=== PATIENT | female | born 1960 | race Caucasian/White ===

== ENCOUNTER → 2016-07-02 | Outpatient (CLI) | payer MEDICAID ==
[~2016-07-02] MED LIST: ALEVE220 M1 PO; CALCIUM + D 6001 TA1 PO; CALCIUM 500 +1 EAC5 PO; ESTRACE1 M1 PO; ESTRACE2 M1 PO; IBUPROFEN800 MG; MEVACOR PO; OMEPRAZOLE20 M1 PO; OYSTER CALCIUM500 MG PO; PREMARIN; PREMARIN PO; PREVACID PO; PRILOSEC PO; PRILOSEC20 M1 PO; PRILOSEC20 MG PO; TYL325 PO; ULTRAM PO; VICODIN 5/1 TAB 5/50 PO
--- NOTE | ~2016-07-02 | MY11 ---
[facility] A Service of [facility] & [facility] RADIOLOGY TEXT RESULTS PATIENT: BRIDGET LINARES LOCATION: [facility] : 56 UNIT #: [id number] AGE: [address]: Stephen Beckford MD SEX: F ORDER DR: [id number] [facility] [address] [facility]. [place], [place] [address] [id number] O MR#: [id number] Acc #: [id number] NAME: BRIDGET LINARES : 1960 SEX: F STUDY DATE/TIME: 07/02/2016 11:55 UNIT: [facility] ROOM: STUDY DESCRIPTION: MY Mammogram Screening Dig Jean Attending Physician: Stephen Beckford M.D. Referring Physician: Stephen Beckford M.D. Ordering Physician: Stephen Beckford M.D. Primary Care Physician: Stephen Beckford M.D. MEDICAL IMAGING REPORT This report is preliminary unless electronic signature is present EXAM Digital screening mammogram 07/02/2016 HISTORY 55-year-old woman, positive family history, niece age 33. Annual screen. COMPARISON STUDIES Comparison mammograms date to 06/15/2005 with most recent screening comparison 06/30/2015. FINDINGS Digital imaging of each breast was completed utilizing screening protocol. Review includes FDA-approved CAD device. The breast parenchyma remains moderately dense with residual fibroglandular opacities in each breast. Slight stable dominance projects inner hemisphere left breast. I see no interval occurring breast mass. There are no suspicious microcalcifications and no architectural deformity. IMPRESSION Stable benign mammogram. Annual screening recommended. BIRADS II Patients over the age of 40 are entered into a reminder system with target due date for the next mammogram. A result letter will also be sent to the patient. BIRADS: 2 - Benign finding Dictated by... Mauri Burroughs M.D. THIS IS AN ELECTRONICALLY VERIFIED REPORT Mauri Burroughs M.D. at 07/02/2016 3:32 PM [facility] A Service of [facility] & [facility] RADIOLOGY TEXT RESULTS PATIENT: BRIDGET LINARES [id number] [birth year] UNIT #: [id number] AGE: [address]: Stephen Beckford MD SEX: F ORDER DR: TD: 07/02/2016 14:55 JOB #: [id number] MEDICAL IMAGING REPORT Page 1 of 1 COPY
== END | disposition home or self-care (01) ==
LOC: CWCC 11:27
DX: Z12.31 Encounter for screening mammogram for malignant neoplasm of breast (principal); Z80.3 Family history of malignant neoplasm of breast
CPT/HCPCS: G0202

== ENCOUNTER → 2016-07-30 | Day surgery (SDC) | payer MEDICARE, MEDICAID ==
--- NOTE | ~2016-07-30 | OR ---
Unit #: [id number] #: [id number] Patient: BRIDGET LINARES [id number] [address] [place], [place] [address] [id number] O MR#: [id number] NAME: BRIDGET LINARES ROOM: Date of Procedure: 07/30/2016 Admission Date: 07/30/2016 Surgeon: Waqar Oleary M.D. : 1960 Attending Physician: Waqar Oleary M.D. Primary Care Physician: Stephen Beckford M.D. SURGERY CENTER OPERATIVE NOTE PROCEDURE PERFORMED Lumbar epidural steroid injection under x-ray guided needle placement with provider administered conscious sedation. PREOPERATIVE DIAGNOSES 1. Acute lumbar radiculitis. 2. Spinal stenosis, lumbosacral spine. 3. Herniated disk, L4-L5. 4. Herniated disk, L3-L4. 5. Degenerative joint disease, lumbosacral spine. 6. Degenerative disk disease, lumbosacral spine. INDICATIONS FOR PROCEDURE The patient presents today with longstanding history of chronic lumbar radicular pain secondary to her underlying degenerative processes. She is generally fairly well managed medically, but over the course of last 3 to 4 months, she has developed a bilateral lower extremity radiculitis, whose pattern is consistent with her x-ray studies, which has failed to respond to conservative measures. She states she was previously had similar symptoms prior to 2011, which were successfully treated with epidural steroid injections. After discussing risks and benefits of proceeding today with a lumbar approach epidural steroid injection with return on 08/13/2016, the patient agreed this would be the appropriate course of action. DESCRIPTION OF PROCEDURE She was then taken to the operating room, where she was prepped and draped in a sterile manner. Standard monitors were applied. She was sedated with 2 mg of IV Versed and lumbar epidural space accessed at the L4-L5 level using loss of resistance technique and x-ray guidance. Needle placement was confirmed with injection of 2 mL of Omnipaque. There was good superior and inferior flow at this L4-L5 placed needle. Following successful needle placement confirmation, the patient received an injectate containing 2 mL normal saline, 2 mL of 0.25% bupivacaine, and 80 mg of methylprednisolone. She tolerated this procedure well. She was discharged home with followup instructions, which include return dates as described above. Dictated by... Waqar Oleary M.D. JRG/modl Unit #: [id number] #: [id number] Patient: BRIDGET LINARES TD: 07/30/2016 23:39 JOB #: [id number] CC: Khurram Olivares M.D. SURGERY CENTER OPERATIVE NOTE Page 1 of 1 X Luis Oleary MD X PROCEDURE OPERATIVE NOTE
== END | disposition home or self-care (01) ==
LOC: CCSC 12:55
DX: G89.29 Other chronic pain (principal); M51.17 Intervertebral disc disorders with radiculopathy, lumbosacral region; M51.16 Intervertebral disc disorders with radiculopathy, lumbar region; M47.27 Other spondylosis with radiculopathy, lumbosacral region; M48.07 Spinal stenosis, lumbosacral region; M17.0 Bilateral primary osteoarthritis of knee; K21.9 Gastro-esophageal reflux disease without esophagitis; E78.5 Hyperlipidemia, unspecified; Z87.442 Personal history of urinary calculi; Z79.899 Other long term (current) drug therapy; Z90.710 Acquired absence of both cervix and uterus; Z98.890 Other specified postprocedural states
CPT/HCPCS: J1040; J2250

== ENCOUNTER → 2016-08-13 | Day surgery (SDC) | payer MEDICARE, MEDICAID ==
--- NOTE | ~2016-08-13 | OR ---
Unit #: [id number] #: [id number] Patient: BRIDGET LINARES [id number] [address] [address] [id number] O MR#: [id number] NAME: BRIDGET LINARES ROOM: Date of Procedure: 08/13/2016 Admission Date: 08/13/2016 Surgeon: Waqar Oleary M.D. : 1960 Attending Physician: Luis Oleary Primary Care Physician: Stephen Beckford M.D. SURGERY CENTER OPERATIVE NOTE PROCEDURE PERFORMED Lumbar epidural steroid injection under x-ray guided needle placement with provider administered conscious sedation. PREOPERATIVE DIAGNOSES 1. Acute lumbar radiculitis. 2. Spinal stenosis, lumbosacral spine. 3. Degenerative joint disease, lumbosacral spine. 4. Herniated disk, L4-L5. 5. Herniated disk, L3-L4. 6. Degenerative disk disease, lumbosacral spine. INDICATIONS FOR PROCEDURE The patient presents today status post one previous lumbar approach epidural steroid injection for an acute radiculitis, which had failed to respond to conservative therapy. Her signs and symptoms are compatible with her x-ray studies. She states she got very little relief with the original epidural steroid injection and what relief she got was only temporary and she has had since had return of symptoms to the point that she is desiring another epidural steroid injection. After discussing risks and benefits of proceeding today with second lumbar approach epidural steroid injection with possibility of additional access at L3-L4, if we did not cover that with the L4-L5 original access point. The patient agreed this would be the appropriate course of action. We also discussed potential referral for back surgery evaluation if this epidural steroid injection did not provide her adequate relief. DESCRIPTION OF PROCEDURE Following these discussions, the patient was taken to the operating room, where she was prepped and draped in a sterile manner. Standard monitors were applied. She was sedated with 2 mg of IV Versed initially and required additional 2 mg of IV Versed as well as additional 1 mL of IV fentanyl throughout the duration of procedure. Lumbar epidural space was accessed at L4-L5 level using loss of resistance technique and x-ray guidance. Needle placement was confirmed with injection of 2 mL of Omnipaque. All dye flow at this L4-L5 level was in the inferior direction. The patient received an injectate containing 2 mL of normal saline and 40 mg of methylprednisolone. This needle was withdrawn and the second access point was obtained with a sterile needle and new sterile gloves at the L3-L4 level. This L3-L4 needle placement again occurred with loss of resistance and x-ray guidance. Total x-ray time for dual placement of these needles was 11 seconds. This needle at the L3-L4 level was confirmed with the injection of 2 mL of Omnipaque which approximately Unit #: [id number] #: [id number] Patient: BRIDGET LINARES 80% of dye flow was in the superior direction, 20% in the inferior which in combination with the previous injection gave us good coverage of L3-L4 and L4-L5. Following successful needle placement confirmation, the patient received an injectate containing 2 mL normal saline, 40 mg of methylprednisolone. She tolerated this procedure well. She was discharged home with followup instructions, which included a return to this clinic on 11/14/2016 if we could be of further service to her. Dictated by... Juan Woodall/sandi TD: 08/13/2016 16:26 JOB #: [id number] CC: Khurram Olivares M.D. SURGERY CENTER OPERATIVE NOTE Page 1 of 1 X Luis Oleary MD X PROCEDURE OPERATIVE NOTE
== END | disposition home or self-care (01) ==
LOC: CCSC 12:10
DX: M51.17 Intervertebral disc disorders with radiculopathy, lumbosacral region (principal); M51.16 Intervertebral disc disorders with radiculopathy, lumbar region; M47.27 Other spondylosis with radiculopathy, lumbosacral region; M48.07 Spinal stenosis, lumbosacral region; K21.9 Gastro-esophageal reflux disease without esophagitis; M19.90 Unspecified osteoarthritis, unspecified site; Z87.442 Personal history of urinary calculi; Z79.899 Other long term (current) drug therapy; Z90.710 Acquired absence of both cervix and uterus; Z98.890 Other specified postprocedural states
CPT/HCPCS: J1040; J2250; J3010

== ENCOUNTER → 2016-10-08 | Outpatient (CLI) | payer MEDICARE ==
--- NOTE | ~2016-10-08 | CR63 ---
[facility] A Service of [facility] & [facility] RADIOLOGY TEXT RESULTS PATIENT: BRIDGET LINARES LOCATION: [facility] : 56 UNIT #: [id number] AGE: [address]: Khurram Olivares MD SEX: F ORDER DR: [id number] [facility] [address] [facility]. [place], [place] [address] [id number] O MR#: [id number] Acc #: [id number] NAME: BRIDGET LINARES : 1960 SEX: F STUDY DATE/TIME: 10/08/2016 10:26 UNIT: [facility] ROOM: STUDY DESCRIPTION: CR Chest 2 View Attending Physician: Khurram Olivares M.D. Referring Physician: Khurram Olivares M.D. Ordering Physician: Khurram Olivares M.D. Primary Care Physician: Stephen Beckford M.D. MEDICAL IMAGING REPORT This report is preliminary unless electronic signature is present EXAM Chest 10/08/2016 HISTORY 56-year-old woman preop clearance left knee arthroscopy. Nonsmoker. Short of breath. COMPARISON Chest 09/12/2009. FINDINGS PA and lateral chest views show normal cardiac size and configuration. Hilar structures and mediastinal contours are preserved. Bilateral lungs are expanded and clear. IMPRESSION Negative chest. Dictated by... Mauri Burroughs M.D. THIS IS AN ELECTRONICALLY VERIFIED REPORT Mauri Burroughs M.D. at 10/08/2016 2:17 PM UZMA/jeaneth TD: 10/08/2016 14:05 JOB #: [id number] MEDICAL IMAGING REPORT Page 1 of 1 COPY
--- NOTE | ~2016-10-08 | EKG ---
PATIENT: BRIDGET LINARES UNIT #: [id number] Ventricular Rate: 81 BPM Atrial Rate: 81 BPM P-R Interval: 152 ms QRS Duration: 72 ms Q-T Interval: 354 ms QTC Calculation(Bezet): 411 ms P Marlette: 15 degrees Calculated R Marlette: -7 degrees Calculated T Marlette: 34 degrees Diagnosis Line: Normal sinus rhythm Diagnosis Line: Moderate voltage criteria for LVH, may be normal Diagnosis Line: variant Diagnosis Line: Borderline ECG Diagnosis Line: When compared with ECG of 12-SEP-2009 16:40, Diagnosis Line: Questionable change in QRS axis Diagnosis Line: Confirmed by WAYNE ROTH MD ([id number]) on 10/08/2016 Diagnosis Line: 6:31:21 PM INTERPRETING MD: GONZALEZ SALINAS
[2016-10-08 10:20] LABS: HEMOGLOBIN 13.3 gm/dL (12.0-16.0); MEAN CELL VOLUME 88.8 FL (83-96); MEAN CORPUSCULAR HEMOGLOBIN 30.3 PG (28-34); MEAN CORPUSCULAR HGB CONC 34.1 g/dL (30-36); MEAN PLATELET VOLUME 7.4 FL (6.5-11.5); RED BLOOD COUNT 4.39 X10e (3.90-5.30); WHITE BLOOD COUNT 5.3 X10e3 (4.0-10.5)
[2016-10-08 10:34] LABS: URINE APPEARANCE CLEAR; URINE BILIRUBIN NEG (NEG); URINE BLOOD NEG (NEG); URINE COLOR YELLOW; URINE GLUCOSE NEG (NEG); URINE KETONE NEG (NEG); URINE LEUKOCYTE ESTERASE NEG (NEG); URINE NITRATE NEG (NEG); URINE PROTEIN NEG (NEG); URINE SPECIFIC GRAVITY 1.017 (1.003-1.035); URINE UROBILINOGEN 0.2 MG/DL (NEG)
[2016-10-08 10:40] LABS: CULTURE INDICATED? NO; URINE SOURCE CLEAN CATCH
[2016-10-08 11:13] LABS: BUN/CREATININE RATIO 16.66; CREATININE SERUM 0.9 mg/dL (0.6-1.4); GLOM FILT RATE Estimated 70.5 mL/min (>60); POTASSIUM 4.7 mmol/L (3.5-5.1)
== END | disposition home or self-care (01) ==
LOC: CLAB 09:39
PROVIDERS: Orthopaedic Surgery
DX: Z01.818 Encounter for other preprocedural examination (principal); M67.52 Plica syndrome, left knee; K21.9 Gastro-esophageal reflux disease without esophagitis; E78.5 Hyperlipidemia, unspecified; M54.16 Radiculopathy, lumbar region
CPT/HCPCS: 36415; 71020; 80048; 81003; 85027; 93005

== ENCOUNTER → 2016-11-14 | Day surgery (SDC) | payer MEDICARE ==
--- NOTE | ~2016-11-14 | OR ---
Unit #: [id number] #: [id number] Patient: BRIDGET LINARES [id number] [address] [place], [place] [address] [id number] O MR#: [id number] NAME: BRIDGET LINARES ROOM: Date of Procedure: 11/14/2016 Admission Date: 11/14/2016 Surgeon: Waqar Oleary M.D. : 1960 Attending Physician: Waqar Oleary M.D. Primary Care Physician: Stephen Beckford M.D. SURGERY CENTER OPERATIVE NOTE PROCEDURE PERFORMED Lumbar epidural steroid injection under x-ray guided needle placement. PREOPERATIVE DIAGNOSES 1. Acute lumbar radiculitis. 2. Spinal stenosis, lumbosacral spine. 3. Herniated disk, L4-L5. 4. Degenerative joint disease, lumbosacral spine. 5. Degenerative disk disease, lumbosacral spine. INDICATIONS FOR PROCEDURE The patient presents today status post 2 previous lumbar approach epidural steroid injections for an acute radiculitis, which had failed to respond to conservative therapy. She states she got great results for almost 100% relief of her symptoms. However, over the course of the past 2 to 4 weeks, her symptoms have returned to the point that they are now breaking through her ongoing continuous conservative measures and have reached a point that they are interfering with her activities of daily living. She attributes some of this to the effort she is put forth in physical therapy for her knees. After discussing risks and benefits of proceeding today with a lumbar approach epidural steroid injection and return on 02/13/2017 for followup, the patient agreed this would be the appropriate course of action. DESCRIPTION OF PROCEDURE She was then taken to the operating room, where she was prepped and draped in sterile manner. Standard monitors were applied. She refused all forms of sedation and lumbar epidural space accessed at the L4-L5 level using loss of resistance technique and x-ray guidance. Needle placement was confirmed with injection of 2 mL of Omnipaque. There was good superior and inferior flow at this L4-L5 placed needle. Following successful needle placement confirmation which required an x-ray time of 6 seconds, the patient received an injectate containing 4 mL normal saline and 80 mg of methylprednisolone. She tolerated this procedure well. She was discharged home with followup instructions, which include return dates as described above. Dictated by... Juan Woodall/sandi Unit #: [id number] #: [id number] Patient: BRIDGET LINARES TD: 11/14/2016 12:14 JOB #: [id number] CC: Khurram Olivares M.D. SURGERY CENTER OPERATIVE NOTE Page 1 of 1 X Luis Oleary MD X PROCEDURE OPERATIVE NOTE
== END | disposition home or self-care (01) ==
LOC: CCSC 07:44
DX: M51.17 Intervertebral disc disorders with radiculopathy, lumbosacral region (principal); M51.16 Intervertebral disc disorders with radiculopathy, lumbar region; M47.27 Other spondylosis with radiculopathy, lumbosacral region; M48.07 Spinal stenosis, lumbosacral region; K21.9 Gastro-esophageal reflux disease without esophagitis; M19.90 Unspecified osteoarthritis, unspecified site; Z87.442 Personal history of urinary calculi; Z79.899 Other long term (current) drug therapy; Z90.710 Acquired absence of both cervix and uterus; Z98.890 Other specified postprocedural states
CPT/HCPCS: J1040; J2250